=== PATIENT | female | born 1950 | race Caucasian/White ===

== ENCOUNTER 2016-10-28 10:49 | Emergency (ER) | payer BC ==
[2016-10-28 10:56] VITALS: BP 128/88; PULSE 94; TEMP 98.1; BMI 31.3
--- NOTE | 2016-10-28 10:59 | PDOC ---
History of Present Illness - General Chief Complaint: Injury Stated Complaint: NOSE INJURY Time Seen by Provider: 10/28/16 10:51 History Source: Patient Exam Limitations: No Limitations - History of Present Illness Initial Comments: 10/28/16 10:57 66 yo F with h/o autoimmune hepatitis, here s/p nasal injuyry last pm. pt states tripped and fell forward landing on her face. no loc. did have epistaxis at the time has since resolved. no eccymosis. no change to vision. mild pain. sustained abrasions over nasal bridge. no loc. no neck or back pain. was seen at an urgent care, and receieved a tetanus shot. was given a script for nasal xray, but couldn't obtain due to insurance so came to ED for evaluation. Past History - Past Medical History Allergies/Adverse Reactions: Allergies Allergy/AdvReac Type Severity Reaction Status Date / Time Penicillins Allergy Verified 10/28/16 10:51 Sulfa (Sulfonamide Allergy Verified 10/28/16 10:51 Antibiotics) Home Medications: Ambulatory Orders Azathioprine 50 mg PO DAILY 10/28/16 Omeprazole 40 mg PO DAILY 10/28/16 Prednisone 10 mg PO DAILY 10/28/16 GI Disorders: Yes (ACID REFLUX) Other medical history: AUTOIMMUNE HEPATITIS - Psycho/Social/Smoking Cessation Hx Suicidal Ideation: No Smoking History: Never smoked Hx Alcohol Use: No Drug/Substance Use Hx: No Review of Systems - Review of Systems Constitutional: No: Chills, Diaphoresis, Fever HEENTM: Yes: Nose Pain, Nose Congestion, Nose Bleeding. No: Blurred Vision Respiratory: No: Cough, Orthopnea, Shortness of Breath Cardiac (ROS): No: Chest Pain, Edema ABD/GI: No: Abdominal Distended Musculoskeletal: No: Back Pain, Gout, Joint Pain Neurological: No: Headache, Numbness, Paresthesia, Dizziness Hematologic/Lymphatic: Yes: Other (immune supression) All Other Systems: Reviewed and Negative *Physical Exam - Vital Signs Last Vital Signs Temp Pulse Resp BP Pulse Ox 98.1 F 94 H 18 128/88 99 10/28/16 10:50 10/28/16 10:50 10/28/16 10:50 10/28/16 10:50 10/28/16 10:50 - Physical Exam General Appearance: Yes: Nourished, Appropriately Dressed HEENT: positive: Normal Voice, TMs Normal, Other (abrasions nasal bridge. no crepitu. no eccymosis. septum no hematoma. dried blood left nare) Neck: positive: Trachea midline, Supple. negative: Tender Respiratory/Chest: positive: Lungs Clear, Normal Breath Sounds Cardiovascular: positive: Regular Rhythm, Regular Rate, S1, S2 Gastrointestinal/Abdominal: positive: Flat, Soft. negative: Tender Musculoskeletal: positive: Normal Inspection Extremity: positive: Normal Capillary Refill Integumentary: positive: Normal Color, Dry, Warm Neurologic: positive: medical records clerk II-XII NML intact, Fully Oriented ED Treatment Course - RADIOLOGY Radiology Studies Ordered: Category Date Time Status NASAL BONES [RAD] Stat Radiology 10/28/16 10:52 Ordered Medical Decision Making - Medical Decision Making 10/28/16 11:33 66 yo F h/o autoimmune hep s/p fall with nose pain, abrasain nasal bridge and epistatixs that resolved. plan pain control as needed, and xray nasal bones. *DC/Admit/Observation/Transfer Diagnosis at time of Disposition: Fracture of nasal bone - Discharge Dispostion Disposition: HOME Condition at time of disposition: Improved Admit: No - Referrals Referrals: Saulo Rajan MD [Staff Physician] - - Patient Instructions Printed Discharge Instructions: Nose Fracture Additional Instructions: no nose blowing. ice to help alleviate swelling three times daily for 20 minutes. you can take ibuprofen 400 mg every 8 hours with food as needed for pain. follow up with DR. Rajan ( plastic surgeon) as needed. see referral list. return for any problems or concners. apply bacitracin to abrasions twice daily.
== END 2016-10-28 12:35 | disposition home or self-care (01) ==
LOC: FER 10:49
DX: S02.2XXA Fracture of nasal bones, initial encounter for closed fracture (principal); W18.30XA Fall on same level, unspecified, initial encounter; Y93.9 Activity, unspecified; Y92.9 Unspecified place or not applicable
CPT/HCPCS: 70160-TC; 99283-25